=== PATIENT | female | born 1995 | race Caucasian/White ===

== ENCOUNTER 2018-04-24 18:44 | Emergency (ER) | payer MEDICAID ==
[~2018-04-24] VITALS: Ht 152.4 cm; Wt 54.4 kg
[2018-04-24 19:12] VITALS: Ht 152.4 cm; Wt 54.4 kg
[2018-04-25 01:02] LABS: BASOPHIL % 0.1 % (0-2); PLATELET COUNT 254 x10^3mcL (130-400)
[2018-04-25 01:06] LABS: RED CELL DISTRIBUTION WIDTH 14.6 % (11.5-14.5)
[2018-04-25 01:11] LABS: CALCIUM 8.2 mg/dL (8.5-10.1); CHLORIDE SERUM 103 mmol/L (98-107); CREATININE SERUM 0.6 mg/dL (0.6-1.0); GFR1 > 60 mL/min; GLUCOSE SERUM 95 mg/dL (74-106); POTASSIUM SERUM 4.1 mmol/L (3.5-5.1); SODIUM SERUM 139 mmol/L (136-145)
[2018-04-25 01:16] LABS: ALBUMIN 3.9 g/dL (3.4-5.0); ALKALINE PHOSPHATASE 74 U/L (46-116); ALT/SGPT 44 U/L (14-59); AST/SGOT 27 U/L (15-37); BILIRUBIN TOTAL 0.26 mg/dL (0.20-1.00); TOTAL PROTEIN, SERUM 8.1 g/dL (6.4-8.2)
[2018-04-25 01:17] LABS: C REACTIVE PROTEIN < 0.2 mg/dL (<=0.9)
[2018-04-25 02:17] VITALS: BP 101/63
== END 2018-04-25 02:15 | disposition home or self-care (01) ==
LOC: ED 18:44
PROVIDERS: Emergency Medicine
DX: J06.9 Acute upper respiratory infection, unspecified (principal); R10.30 Lower abdominal pain, unspecified; G47.00 Insomnia, unspecified
CPT/HCPCS: 36415; Q0092